=== PATIENT | male | born 1960 | race Caucasian/White ===

== ENCOUNTER 2021-01-22 18:52 | Emergency (ER) | payer OTHER ==
[~2021-01-22] VITALS: Ht 170.2 cm; Wt 67.1 kg
[2021-01-22 19:05] VITALS: BP 145/93; Ht 170.2 cm; Wt 67.1 kg
[2021-01-22] MEDS ORDERED: STATIN (19:06)
[2021-01-22] MEDS ORDERED: BRILINTA90 MG PO (19:06)
== END 2021-01-22 19:52 | disposition home or self-care (01) ==
LOC: D.ER 18:52
DX: S81.812A Laceration without foreign body, left lower leg, initial encounter (principal); W45.8XXA Other foreign body or object entering through skin, initial encounter; Y93.9 Activity, unspecified; Y92.9 Unspecified place or not applicable